=== PATIENT | female | born 1990 | race African-American/Black ===

== ENCOUNTER 2017-04-06 14:51 | Emergency (ER) | payer OTHER ==
[~2017-04-06] VITALS: Ht 162.6 cm; Wt 152.0 kg
[~2017-04-06 14:51] MED LIST: ENDOCET 5-3251 EACH PO; FERROUS SULFAT325 MG PO; FLONASE16 G1 BOTH NARES; METRONIDAZOLE500 MG PO; MUCUS RELIEF600 MG PO; NAPROSYN-EC500 MG PO; PRENATAL + DHA1 EAC1 PO; PRENATAL TABLE1 EAC3 PO; PRENATAL1 EACH PO; PROAIR HFA8.5 GM IH; Proventil,Ventolin H IH; Tums PO; ZANTAC150 MG PO; ZOFRAN ODT4 MG PO
[2017-04-06] MEDS ORDERED: MYLERAN2 MG PO (15:28)
[2017-04-06] MEDS ORDERED: ORTHO TRI-CY1 TABLE1 PO (15:30)
[2017-04-06 16:38] LABS: ADD MIUA? YES; BILIRUBIN NEGATIVE; BLOOD LARGE; COLOR YELLOW ((YELLOW)); GLUCOSE (STRIP) NEGATIVE; KETONES NEGATIVE; LEUKOCYTES NEGATIVE; NITRITE NEGATIVE; PROTEIN (STRIP) 30; SPECIFIC GRAVITY 1.021 (1.000-1.030); UROBILINOGEN 0.2 MG/DL (0.2-1.0)
[2017-04-06 16:42] LABS: BACTERIA RARE /HPF; EPITHELIAL CELLS RARE /HPF; MUCUS TRACE /LPF; RED BLOOD CELLS TNTC /HPF (0-5); WHITE BLOOD CELLS 0-5 /HPF (0-5)
[2017-04-06 16:45] LABS: HEMATOCRIT 35.1 % (36.0-46.0); MCH 22.2 PG (29.0-34.0); MCHC 29.9 G/DL (30.0-36.0); MCV 74.2 FL (83-99); MEAN PLAT.VOLUME 8.7 uM^3 (9.5-12.4); PLATELET COUNT 515 K/uL (156-360); RBC DIS.WIDTH-SD 45.7 % (39-53); RED BLOOD COUNT 4.73 M/uL (3.80-5.20); WHITE BLOOD COUNT 8.8 K/uL (4.1-10.2)
[2017-04-06 16:48] LABS: CHLORIDE 108 mEq/L (99-109); POTASSIUM 4.1 mEq/L (3.7-5.4); SODIUM 140 mEq/L (136-147)
[2017-04-06 16:49] LABS: GLUCOSE 99 mg/dL (70-99)
[2017-04-06 16:51] LABS: ANION GAP 8 MEQ/L (2-14)
[2017-04-06 16:53] LABS: GFR ESTIMATE (CALCULATED) > 59 mL/min/
[2017-04-06 16:54] LABS: UREA NITROGEN (BUN) 9 mg/dL (9-23)
[2017-04-06 17:01] LABS: QUANTITATIVE HCG < 4.0 MIU/ML
[2017-04-06 18:21] VITALS: BP 155/91
== END 2017-04-06 18:21 | disposition home or self-care (01) ==
LOC: EME 14:51
PROVIDERS: Physician Assistant
DX: N92.6 Irregular menstruation, unspecified (principal); N83.202 Unspecified ovarian cyst, left side; M54.5 Low back pain; R42 Dizziness and giddiness; R51 Headache; R10.9 Unspecified abdominal pain; R35.0 Frequency of micturition; J45.909 Unspecified asthma, uncomplicated; Z79.3 Long term (current) use of hormonal contraceptives
CPT/HCPCS: 76856; 80048; 81003; 84702; 85027; 99281; 99283